=== PATIENT | female | born 1985 | race Native Hawaiian/Other Pacific Islander ===

== ENCOUNTER 2017-04-17 15:34 | Emergency (ER) | payer OTHER ==
--- NOTE | 2017-04-17 17:33 | ED CLINICAL REPORT ---
Clinical Report - Physicians/Mid Levels [facility] [address] [place] [address] 04/17/2017 15:35 Patient: ASHLIE RUBIN Time Seen: 16:17. Arrived- By private vehicle. Historian- patient. HISTORY OF PRESENT ILLNESS Chief Complaint: DYSPNEA. This started yesterday 7 PM; Out of meds this am. and is still present. It was abrupt in onset and has been waxing/waning. The dyspnea is severe. The dyspnea is worsened by exertion (better with). The patient has had a cough, severe wheezing and dyspnea on exertion. No sputum production, fever or sweating episodes. Similar symptoms previously: Several times. REVIEW OF SYSTEMS No eye irritation, sore throat, sinus drainage, nausea or vomiting. No abdominal pain or diarrhea. PAST HISTORY PCP: Dr RAM Illness: Asthma Ops: None. SOCIAL HISTORY Former smoker. ADDITIONAL NOTES The nursing notes have been reviewed. PHYSICAL EXAM Vital Signs: 04/17/2017 17:55 BP: 104/54. HR: 87. RR: 18. O2 saturation: 96%. Pain level now: 0/10. 04/17/2017 15:53 BP: 90/57. HR: 108. RR: 24. O2 saturation: 94%. Temp: 98.7 F. Pain level now: 0/10. Appearance: Alert. Patient in moderate distress. Eyes: Eyes normal inspection. ENT: Pharynx normal. Neck: Normal inspection. CVS: Tachycardia. Heart sounds normal. Respiratory: Respiratory distress. Decreased air movement. Expiratory severe bilateral wheezes diffusely. No stridor or rales. Abdomen: Soft and nontender. Skin: Skin warm. Normal skin color. No rash. Neuro: No alteration in mental status. PROGRESS AND PROCEDURES Course of Care: 15:54 04/18/17. Pt given 3 albuterol HHN treatments and Solumedrol 125 mg IV. She is still wheezing but feels quite comfortable now. Disposition: Discharged. Condition: improved. CLINICAL IMPRESSION Asthma with an acute exacerbation. INSTRUCTIONS Prescription Medications: Albuterol HFA oral inhaler: inhale 4 puffs via spacer every 4 hours as needed for wheezing. Dispense one (1) unit. One refill. Prednisone 20 mg: take 3 orally every day for 5 days. Dispense fifteen (15). No refills. Albuterol 0.083% Inhalation Solution: inhale 1 unit dose (3 mL) via nebulizer every 4 hours as needed for wheezing. Dispense fifty (50) units. No refill. Follow-up: Follow up with your doctor in about five days. Call for the next available appointment. Understanding of the discharge instructions verbalized by patient. (Electronically signed by Tomas Roberts MD 04/18/2017 15:56)
--- NOTE | 2017-04-17 17:33 | ED NURSING NOTES ---
Clinical Report - Nurses [facility] [place] [address] 04/17/2017 15:35 Patient: ASHLIE RUBIN TRIAGE Triage time 15:53. Chief Complaint: SHORTNESS OF BREATH, DIFFICULTY BREATHING, "ASTHMA ATTACK" and WHEEZING and (ran out of meds). Alert. --16:00 Laura Wei R.N. 15:53 04/17/17. BP: 90/57 taken on the left arm. HR: 108. RR: 24. O2 saturation: 94% on room air. Temp: 98.7 F (oral). Pain level now: 0/10. --16:00 Laura Wei R.N. Weight: 100.2 kg stated. Height/Length: 66 inches Per Patient. BMI: 35.7. --15:56 Laura Wei R.N. Medications Albuterol Sulfate Inhalation. Methadone HCl Oral 95 mg, daily. --15:55 Laura Wei R.N. Allergies None. --15:55 Laura Wei R.N. History Arrived by private vehicle. Historian: patient. Accompanied by family. Primary physician ([facility]). This started last night. PAST MEDICAL HX: Immunizations: up-to-date. Denies current . SOCIAL HX: Former smoker, end date 2010. No alcohol use or drug use. FALL RISK ASSESSMENT: Fall risk assessment completed. No fall risk identified. --16:00 Laura Wei R.N. PROBLEMS: Pneumonia. Substance Abuse. Asthma. --15:54 Laura Wei R.N. ADDITIONAL SURGERIES: no known surgeries. Interventions ID band on patient. To room. --16:00 Laura Wei R.N. PHYSICAL ASSESSMENT 16:00 04/17/17. RESPIRATORY: Moderate respiratory distress. The patient can speak a few words at a time. --16:00 Laura Wei R.N. NURSING PROGRESS NOTES 16:00 04/17/17. Oxygen administered by nasal cannula at 2 liters. Reassurance given. Patient identifiers checked. Call light placed in reach. Bed placed in lowest position. Patient ready for evaluation. --16:00 Laura Wei R.N. ( On 2L, sat 95%.). --16:13 Laura Wei R.N. 16:13 04/17/17. ( RT here, giving albuterol neb treatments.). --16:13 Laura Wei R.N. 16:40 04/17/2017 Site #1 started via IV in the right hand with an 20g angiocath (by Laura RN). --16:50 Jacquie Marrufo R.N. 16:50 04/17/2017 SOLU-MEDROL (MethylPREDNISolone Sodium Succ) IVP 125 mg given over 2 minute(s) via site #1. Allergies verified and confirmed 5 rights. IV patency established. IV site checked: no pain, redness, or swelling. IV flushed thoroughly pre- and post-medication administration. IVP given by RN. --16:50 Jacquie Mrarufo R.N. 16:50 sits up in the bed, appears to be falling asleep. --16:51 Jacquie Marrufo R.N. DISPOSITION / DISCHARGE Departure time: 1755. Condition at departure: improved. No learning barriers present. Discharge instructions provided and reviewed with the patient, spouse and family. Reviewed medication(s) information. Prescription(s) given to the patient. Reviewed referral to family practice for followup. Patient verbalized understanding. Family did not verbalize understanding. Written instructions provided. The patient was discharged home and accompanied by family. She left the Emergency Department ambulatory and via private vehicle. --18:00 Laura Wei R.N. 17:55 04/17/17. BP: 104/54. HR: 87. RR: 18. O2 saturation: 96%. Pain level now: 0/10. --18:00 Laura Wei R.N. Locked/Released at 04/17/2017 18:07 by Laura Wei R.N.
--- NOTE | 2017-04-17 17:33 | ED ORDER SUMMARY ---
..... Patient: ASHLIE RUBIN OrderSheet [facility] VisitID: [id number] [place] [address] 32y, F Registration Date/Time: 04/17/2017 ORDER SHEET Weight: 100.2 kg (stated) Allergies: None GENERAL ORDERS: MEDICATION ORDERS: IV FLUIDS: Solu-MEDROL IV 125 mg (NOW) (16:18 04/17/2017 Freda GILBERT) (Ack 16:41 Deirdre R.N.) (16:50 Deirdre R.NTuan) IV Saline Lock (17:11 04/17/2017 Carmel Wilder verbal order read back to Freda GILBERT) (17:12 Carmel R.N.) ORDER SHEET NOTES: [Electronically signed by Laura Wei R.N. (18:07 04/17/2017)] [Electronically signed by Tomas Roberts MD (15:56 04/18/2017)] [Electronically locked/signed by Laura Wei R.N. (18:07 04/17/2017)]
--- NOTE | 2017-04-17 17:33 | ED NURSING NOTES ---
Clinical Report - Nurses [facility] [place] [address] 04/17/2017 15:35 Patient: ASHLIE RUBIN TRIAGE Triage time 15:53. Chief Complaint: SHORTNESS OF BREATH, DIFFICULTY BREATHING, "ASTHMA ATTACK" and WHEEZING and (ran out of meds). Alert. --16:00 Laura Wei R.N. 15:53 04/17/17. BP: 90/57 taken on the left arm. HR: 108. RR: 24. O2 saturation: 94% on room air. Temp: 98.7 F (oral). Pain level now: 0/10. --16:00 Laura Wei R.N. Weight: 100.2 kg stated. Height/Length: 66 inches Per Patient. BMI: 35.7. --15:56 Laura Wei R.N. Medications Albuterol Sulfate Inhalation. Methadone HCl Oral 95 mg, daily. --15:55 Laura Wei R.N. Allergies None. --15:55 Laura Wei R.N. History Arrived by private vehicle. Historian: patient. Accompanied by family. Primary physician ([facility]). This started last night. PAST MEDICAL HX: Immunizations: up-to-date. Denies current . SOCIAL HX: Former smoker, end date 2010. No alcohol use or drug use. FALL RISK ASSESSMENT: Fall risk assessment completed. No fall risk identified. --16:00 Laura Wei R.N. PROBLEMS: Pneumonia. Substance Abuse. Asthma. --15:54 Laura Wei R.N. ADDITIONAL SURGERIES: no known surgeries. Interventions ID band on patient. To room. --16:00 Laura Wei R.N. PHYSICAL ASSESSMENT 16:00 04/17/17. RESPIRATORY: Moderate respiratory distress. The patient can speak a few words at a time. --16:00 Laura Wei R.N. NURSING PROGRESS NOTES 16:00 04/17/17. Oxygen administered by nasal cannula at 2 liters. Reassurance given. Patient identifiers checked. Call light placed in reach. Bed placed in lowest position. Patient ready for evaluation. --16:00 Laura Wei R.N. ( On 2L, sat 95%.). --16:13 Laura Wei R.N. 16:13 04/17/17. ( RT here, giving albuterol neb treatments.). --16:13 Laura Wei R.N. 16:40 04/17/2017 Site #1 started via IV in the right hand with an 20g angiocath (by Laura RN). --16:50 Jacquie Marrufo R.N. 16:50 04/17/2017 SOLU-MEDROL (MethylPREDNISolone Sodium Succ) IVP 125 mg given over 2 minute(s) via site #1. Allergies verified and confirmed 5 rights. IV patency established. IV site checked: no pain, redness, or swelling. IV flushed thoroughly pre- and post-medication administration. IVP given by RN. --16:50 Jacquie Marrufo R.N. 16:50 sits up in the bed, appears to be falling asleep. --16:51 Jacquie Marrufo R.N. DISPOSITION / DISCHARGE Departure time: 1755. Condition at departure: improved. No learning barriers present. Discharge instructions provided and reviewed with the patient, spouse and family. Reviewed medication(s) information. Prescription(s) given to the patient. Reviewed referral to family practice for followup. Patient verbalized understanding. Family did not verbalize understanding. Written instructions provided. The patient was discharged home and accompanied by family. She left the Emergency Department ambulatory and via private vehicle. --18:00 Laura Wei R.N. 17:55 04/17/17. BP: 104/54. HR: 87. RR: 18. O2 saturation: 96%. Pain level now: 0/10. --18:00 Laura Wei R.N. Locked/Released at 04/17/2017 18:07 by Laura Wei R.N.
--- NOTE | 2017-04-17 17:33 | ED CLINICAL REPORT ---
Clinical Report - Physicians/Mid Levels [facility] [address] [place] [address] 04/17/2017 15:35 Patient: ASHLIE RUBIN Time Seen: 16:17. Arrived- By private vehicle. Historian- patient. HISTORY OF PRESENT ILLNESS Chief Complaint: DYSPNEA. This started yesterday 7 PM; Out of meds this am. and is still present. It was abrupt in onset and has been waxing/waning. The dyspnea is severe. The dyspnea is worsened by exertion (better with). The patient has had a cough, severe wheezing and dyspnea on exertion. No sputum production, fever or sweating episodes. Similar symptoms previously: Several times. REVIEW OF SYSTEMS No eye irritation, sore throat, sinus drainage, nausea or vomiting. No abdominal pain or diarrhea. PAST HISTORY PCP: Dr RAM Illness: Asthma Ops: None. SOCIAL HISTORY Former smoker. ADDITIONAL NOTES The nursing notes have been reviewed. PHYSICAL EXAM Vital Signs: 04/17/2017 17:55 BP: 104/54. HR: 87. RR: 18. O2 saturation: 96%. Pain level now: 0/10. 04/17/2017 15:53 BP: 90/57. HR: 108. RR: 24. O2 saturation: 94%. Temp: 98.7 F. Pain level now: 0/10. Appearance: Alert. Patient in moderate distress. Eyes: Eyes normal inspection. ENT: Pharynx normal. Neck: Normal inspection. CVS: Tachycardia. Heart sounds normal. Respiratory: Respiratory distress. Decreased air movement. Expiratory severe bilateral wheezes diffusely. No stridor or rales. Abdomen: Soft and nontender. Skin: Skin warm. Normal skin color. No rash. Neuro: No alteration in mental status. PROGRESS AND PROCEDURES Course of Care: 15:54 04/18/17. Pt given 3 albuterol HHN treatments and Solumedrol 125 mg IV. She is still wheezing but feels quite comfortable now. Disposition: Discharged. Condition: improved. CLINICAL IMPRESSION Asthma with an acute exacerbation. INSTRUCTIONS Prescription Medications: Albuterol HFA oral inhaler: inhale 4 puffs via spacer every 4 hours as needed for wheezing. Dispense one (1) unit. One refill. Prednisone 20 mg: take 3 orally every day for 5 days. Dispense fifteen (15). No refills. Albuterol 0.083% Inhalation Solution: inhale 1 unit dose (3 mL) via nebulizer every 4 hours as needed for wheezing. Dispense fifty (50) units. No refill. Follow-up: Follow up with your doctor in about five days. Call for the next available appointment. Understanding of the discharge instructions verbalized by patient. (Electronically signed by Tomas Roberts MD 04/18/2017 15:56)
--- NOTE | 2017-04-17 17:33 | ED ORDER SUMMARY ---
..... Patient: ASHLIE RUBIN OrderSheet [facility] VisitID: [id number] [place] [address] 32y, F Registration Date/Time: 04/17/2017 ORDER SHEET Weight: 100.2 kg (stated) Allergies: None GENERAL ORDERS: MEDICATION ORDERS: IV FLUIDS: Solu-MEDROL IV 125 mg (NOW) (16:18 04/17/2017 Freda GILBERT) (Ack 16:41 Deirdre R.N.) (16:50 Deirdre R.NTuan) IV Saline Lock (17:11 04/17/2017 Carmel Wilder verbal order read back to Freda GILBERT) (17:12 Carmel R.N.) ORDER SHEET NOTES: [Electronically signed by Laura Wei R.N. (18:07 04/17/2017)] [Electronically signed by Tomas Roberts MD (15:56 04/18/2017)] [Electronically locked/signed by Laura Wei R.N. (18:07 04/17/2017)]
--- NOTE | 2017-04-18 15:56 | ED MAR SUMMARY ---
..... Medication Administration Record [facility] [address] [place] [address] Patient: ASHLIE RUBIN Visit ID: [id number] 32y, F Weight: 100.2 kg Height/Length: 66 in BMI: 35.7 ALLERGIES: None Given 16:50 04/17/2017 Jacquie Marrufo R.N. Medication Administered: SOLU-MEDROL [IVP] (METHYLPREDNISOLONE SODIUM SUCC), Dose: 125 mg IVP over 2 minute(s), Site: #1 right hand. Medication Ordered: Solu-MEDROL IV 125 mg (NOW).
--- NOTE | 2017-04-18 15:56 | ED MED RECONCILIATION SUMMARY ---
Patient: ASHLIE RUBIN Medication Reconciliation Report [facility] VisitID: [id number] [address] [place] [address] 32y, F Registration Date/Time: 04/17/2017 Weight: 100.2 kg Height/Length: 66 in. BMI: 35.7 ALLERGIES: None The patient's Home Medications are listed below: THE FOLLOWING MEDICATIONS NEED TO BE RECONCILED: Albuterol Sulfate Inhalation Methadone HCl Oral 95 mg, daily The source(s) of the original Home Medication information: Not obtained. The following Medications were given to the patient in the Emergency Department: SOLU-MEDROL [IVP] IVP 125 mg, administered: 04/17/2017 4:50:00 PM The following Medications were prescribed to the patient: Albuterol HFA oral inhaler: inhale 4 puffs via spacer every 4 hours as needed for wheezing. Dispense one (1) unit. One refill. -- Tomas Roberts MD Prednisone 20 mg: take 3 orally every day for 5 days. Dispense fifteen (15). No refills. -- Tomas Roberts MD Albuterol 0.083% Inhalation Solution: inhale 1 unit dose (3 mL) via nebulizer every 4 hours as needed for wheezing. Dispense fifty (50) units. No refill. -- Tomas Roberts MD
--- NOTE | 2017-04-18 15:56 | ED MAR SUMMARY ---
..... Medication Administration Record [facility] [address] [place] [address] Patient: ASHLIE RUBIN Visit ID: [id number] 32y, F Weight: 100.2 kg Height/Length: 66 in BMI: 35.7 ALLERGIES: None Given 16:50 04/17/2017 Jacquie Marrufo R.N. Medication Administered: SOLU-MEDROL [IVP] (METHYLPREDNISOLONE SODIUM SUCC), Dose: 125 mg IVP over 2 minute(s), Site: #1 right hand. Medication Ordered: Solu-MEDROL IV 125 mg (NOW).
--- NOTE | 2017-04-18 15:56 | ED MED RECONCILIATION SUMMARY ---
Patient: ASHLIE RUBIN Medication Reconciliation Report [facility] VisitID: [id number] [address] [place] [address] 32y, F Registration Date/Time: 04/17/2017 Weight: 100.2 kg Height/Length: 66 in. BMI: 35.7 ALLERGIES: None The patient's Home Medications are listed below: THE FOLLOWING MEDICATIONS NEED TO BE RECONCILED: Albuterol Sulfate Inhalation Methadone HCl Oral 95 mg, daily The source(s) of the original Home Medication information: Not obtained. The following Medications were given to the patient in the Emergency Department: SOLU-MEDROL [IVP] IVP 125 mg, administered: 04/17/2017 4:50:00 PM The following Medications were prescribed to the patient: Albuterol HFA oral inhaler: inhale 4 puffs via spacer every 4 hours as needed for wheezing. Dispense one (1) unit. One refill. -- Tomas Roberts MD Prednisone 20 mg: take 3 orally every day for 5 days. Dispense fifteen (15). No refills. -- Tomas Roberts MD Albuterol 0.083% Inhalation Solution: inhale 1 unit dose (3 mL) via nebulizer every 4 hours as needed for wheezing. Dispense fifty (50) units. No refill. -- Tomas Roberts MD
--- NOTE | 2017-04-18 15:56 | ED DISCHARGE INSTRUCTIONS ---
Patient: ASHLIE RUBIN General Instructions [facility] VisitID: [id number] [place] [address] 32y, F Registration Date/Time: 04/17/2017 Asthma with an acute exacerbation. INSTRUCTIONS Prescription Medications: Albuterol HFA oral inhaler: inhale 4 puffs via spacer every 4 hours as needed for wheezing. Dispense one (1) unit. One refill. Prednisone 20 mg: take 3 orally every day for 5 days. Dispense fifteen (15). No refills. Albuterol 0.083% Inhalation Solution: inhale 1 unit dose (3 mL) via nebulizer every 4 hours as needed for wheezing. Dispense fifty (50) units. No refill. Follow-up: Follow up with your doctor in about five days. Call for the next available appointment. Understanding of the discharge instructions verbalized by patient. ADDITIONAL INFORMATION Asthma [Adult] Asthma is a disease where the small air passages within the lung go into spasm and restrict the flow of air. Inflammation and swelling of the airways cause further restriction. During an acute asthma attack, these factors cause difficulty breathing, wheezing, cough and chest tightness. An asthma attack can be triggered by many things. Common triggers include the common cold, bronchitis, pneumonia, irritants such as smoke or pullutants in the air, emotional upset and heavy exercise. Inmany adults with asthma, allergies todust, mold, pollen and animal dander can cause an asthma attack. Skipping doses of daily asthma medicine can also bring on an asthma attack. Asthma can be controlled with proper medicines and decreased exposure to known allergens. Home Care: Take prescribed medicine exactly at the times advised. If you have a hand-held inhaler or aerosol breathing medicine, do not use it more than once every four hours, unless told to do so. (If you need this medicine more than every four hours, you may need to return to the Emergency Room.) If prescribed an antibiotic or prednisone, take all of the medicine even if you are feeling better after a few days. Do not smoke. Avoid being exposed to the smoke of others. Some persons with asthma have worsening of their symptoms when they take aspirin and non-steroidal medicines like ibuprofen (Motrin, Advil) and naproxen (Aleve, Naprosyn). Talk to your doctor if you think this may apply to you. Acetaminophen (Tylenol)should be safe to use. Follow Up with your doctor, or as advised by our staff. Always bring all of your current medicines with you for your doctor to see. If you do not already have one, talk to your doctor about developing a personalized "Asthma Action Plan." [NOTE: A pneumococcal vaccine and yearly flu shot (every fall) are recommended. Ask your doctor about this.] Get Prompt Medical Attention if any of the following occur: Increased wheezing or shortness of breath Need to use your inhalers more often than usual without relief Fever of 100.4F (38C) or higher, or as directed by your healthcare provider Coughing up lots of dark-colored or bloody sputum (mucus) Chest pain with each breath You do not start to improve within 24 hours Call 911 If Any Of The Following Occur : Trouble walking or talking because of shortness of breath If you use a peak flow meter andyou are still in the red zone (less than 50 percent) 15 minutes after using inhaler medication Lips or fingernails turning chakraborty or blue Albuterol Sulfate Pressurized inhalation, suspension What is this medicine? ALBUTEROL (al BYOO ter ole) is a bronchodilator. It helps open up the airways in your lungs to make it easier to breathe. This medicine is used to treat and to prevent bronchospasm. How should I use this medicine? This medicine is for inhalation through the mouth. Follow the directions on your prescription label. Take your medicine at regular intervals. Do not use more often than directed. Make sure that you are using your inhaler correctly. Ask you doctor or health care provider if you have any questions. Talk to your mental hygiene consultant regarding the use of this medicine in children. Special care may be needed. What side effects may I notice from receiving this medicine? Side effects that you should report to your doctor or health floor care specialist as soon as possible: allergic reactions like skin rash, itching or hives, swelling of the face, lips, or tongue breathing problems chest pain feeling faint or lightheaded, falls high blood pressure irregular heartbeat fever muscle cramps or weakness pain, tingling, numbness in the hands or feet vomiting Side effects that usually do not require medical attention (report to your doctor or health floor care specialist if they continue or are bothersome): cough difficulty sleeping headache nervousness or trembling stomach upset stuffy or runny nose throat irritation unusual taste What may interact with this medicine? anti-infectives like chloroquine and pentamidine caffeine cisapride diuretics medicines for colds medicines for depression or for emotional or psychotic conditions medicines for weight loss including some herbal products methadone some antibiotics like clarithromycin, erythromycin, levofloxacin, and linezolid some heart medicines steroid hormones like dexamethasone, cortisone, hydrocortisone theophylline thyroid hormones What if I miss a dose? If you miss a dose, use it as soon as you can. If it is almost time for your next dose, use only that dose. Do not use double or extra doses. Where should I keep my medicine? Keep out of the reach of children. Store at room temperature between 15 and 30 degrees C (59 and 86 degrees F). The contents are under pressure and may burst when exposed to heat or flame. Do not freeze. This medicine does not work as well if it is too cold. Throw away any unused medicine after the expiration date. Inhalers need to be thrown away after the labeled number of puffs have been used or by the expiration date; whichever comes first. Ventolin HFA should be thrown away 12 months after removing from foil pouch. Check the instructions that come with your medicine. What should I tell my health care provider before I take this medicine? They need to know if you have any of the following conditions: diabetes heart disease or irregular heartbeat high blood pressure pheochromocytoma seizures thyroid disease an unusual or allergic reaction to albuterol, levalbuterol, sulfites, other medicines, foods, dyes, or preservatives or trying to get breast-feeding What should I watch for while using this medicine? Tell your doctor or health floor care specialist if your symptoms do not improve. Do not use extra albuterol. If your asthma or bronchitis gets worse while you are using this medicine, call your doctor right away. If your mouth gets dry try chewing sugarless gum or sucking hard candy. Drink water as directed. Albuterol Sulfate Nebulizer solution What is this medicine? ALBUTEROL (al BYOO ter ole) is a bronchodilator. It helps to open up the airways in your lungs to make it easier to breathe. This medicine is used to treat and to prevent bronchospasm. How should I use this medicine? This medicine is used in a nebulizer. Nebulizers make a liquid into an aerosol that you breathe in through your mouth or your mouth and nose into your lungs. You will be taught how to use your nebulizer. Follow the directions on your prescription label. Take your medicine at regular intervals. Do not use more often than directed. Talk to your mental hygiene consultant regarding the use of this medicine in children. Special care may be needed. What side effects may I notice from receiving this medicine? Side effects that you should report to your doctor or health floor care specialist as soon as possible: allergic reactions like skin rash, itching or hives, swelling of the face, lips, or tongue breathing problems chest pain feeling faint or lightheaded, falls high blood pressure irregular heartbeat fever muscle cramps or weakness pain, tingling, numbness in the hands or feet vomiting Side effects that usually do not require medical attention (report to your doctor or health floor care specialist if they continue or are bothersome): cough difficulty sleeping headache nervousness, trembling stomach upset stuffy or runny nose throat irritation unusual taste What may interact with this medicine? anti-infectives like chloroquine and pentamidine caffeine cisapride diuretics medicines for colds medicines for depression or emotional or psychotic conditions medicines for weight loss including some herbal products methadone some antibiotics like clarithromycin, erythromycin, levofloxacin, and linezolid some heart medicines steroid hormones like dexamethasone, cortisone, hydrocortisone theophylline thyroid hormones What if I miss a dose? If you miss a dose, use it as soon as you can. If it is almost time for your next dose, use only that dose. Do not use double or extra doses. Where should I keep my medicine? Keep out of the reach of children. Store between 2 and 25 degrees C (36 and 77 degrees F). Do not freeze. Protect from light. Throw away any unused medicine after the expiration date. Most products are kept in the foil package until time of use. Some products can be used up to 1 week after they are removed from the foil pouch. Check the instructions that come with your medicine. What should I tell my health care provider before I take this medicine? They need to know if you have any of the following conditions: diabetes heart disease or irregular heartbeat high blood pressure pheochromocytoma seizures thyroid disease an unusual or allergic reaction to albuterol, levalbuterol, sulfites, other medicines, foods, dyes, or preservatives or trying to get breast-feeding What should I watch for while using this medicine? Tell your doctor or health floor care specialist if your symptoms do not improve. Do not use extra albuterol. Call your doctor right away if your asthma or bronchitis gets worse while you are using this medicine. If your mouth gets dry try chewing sugarless gum or sucking hard candy. Drink water as directed. You have been given the following additional information: Asthma, Acute (Adult) Albuterol Sulfate Pressurized inhalation, suspension Albuterol Sulfate Nebulizer solution (Electronically signed by Tomas Roberts MD 04/18/2017 15:56)
== END 2017-04-17 17:55 | disposition home or self-care (01) ==
LOC: ED SRH 15:34
DX: J45.901 Unspecified asthma with (acute) exacerbation (principal); Z87.891 Personal history of nicotine dependence

== ENCOUNTER 2017-05-28 19:44 | Emergency (ER) | payer OTHER ==
--- NOTE | 2017-05-28 21:16 | DIAGNOSTIC IMAGING REPORT ---
PROCEDURE: CT SINUS/FACIAL BONES W/CONT CLINICAL INDICATION: FACIAL SWELLING TECHNIQUE: 125 ml of Isovue 300 injected intravenously and axial images were obtained through the face with coronal and sagittal reformations. COMPARISON: None. FINDINGS: Left periorbital piercing device. There is mild left periorbital, infraorbital and left paranasal soft tissue swelling but no evidence of an abscess. The globes and orbits are normal. Visualized brain parenchyma is unremarkable. The parotid and submandibular glands are normal. Mildly enlarged digastric and submandibular lymph nodes. There is no fracture. Moderate ethmoid, bilateral maxillary and mild left sphenoid sinus disease. Soft tissue opacification of the nasal passages posteriorly. Mastoids are unremarkable. Normal TMJs. IMPRESSION: 1. Left periorbital piercing device 2. Mild left periorbital, infraorbital and paranasal soft tissue swelling suggestive of cellulitis. No abscess. 3. Mild adenopathy 4. Sinusitis and possible nasal polyps. 5. Results discussed with Linda Krause. All CT scans at this facility use dose modulation, iterative reconstruction, and/or weight-based dosing when appropriate to reduce radiation dose to as low as reasonably achievable.
--- NOTE | 2017-05-28 21:31 | ED CLINICAL REPORT ---
Clinical Report - Physicians/Mid Levels [facility] [address] [place] [address] 05/28/2017 19:48 Patient: ASHLIE RUBIN Time Seen: 1949; upon arrival, initial patient contact, initial documentation, patient care assumed. Arrived- By private vehicle. Historian- patient. HISTORY OF PRESENT ILLNESS Chief Complaint: EYE PAIN and REDNESS. This started today, involves the left eye, is characterized as severe and has been constant and is still present. The patient did not sustain an injury. Eye pain, discomfort and redness. No eye discharge, eye matting, photophobia, blurred vision or double vision. Eyelid swelling. REVIEW OF SYSTEMS All systems otherwise negative, except as recorded above. PAST HISTORY See nurses notes. PROBLEMS: Pneumonia. Substance Abuse. --20:00 Vanessa Maria R.N. Asthma. SOCIAL HISTORY Never smoker. Occasional alcohol use. History of drug use. Is a recovering addict. ADDITIONAL NOTES The nursing notes have been reviewed with agreement regarding the chief complaint, HPI, ROS, PMH and patient medications and allergies. PHYSICAL EXAM Vital Signs: 05/28/2017 19:57 BP: 128/83. HR: 66. RR: 18. O2 saturation: 98%. Temp: 98.4 F. Pain level now: 6/10. Have been reviewed as normal and appear to be correct. Appearance: Alert. No acute distress. HEENT: Ears normal. Nose normal. Pharynx normal. Head appears normal to external inspection. Eyes: Eyelids appear abnormal to inspection. Conjunctivae and sclerae appear normal to inspection. Corneas appear normal to inspection. Pupils equal, round and reactive to light. Accommodation normal. Funduscopic exam normal. Visual shi normal. EOMs intact. Periorbital areas do not appear normal to inspection. Left periorbital area: moderate erythema, tenderness and swelling of the lateral and medial aspect and supraorbital and infraorbital area of the periorbital area. No puncture wound or foreign body. No laceration, abrasion, ecchymosis or deformity. No entrapment of extraocular muscles or gaze palsy. Anterior chambers clear. Anterior chambers of normal depth. Rt Eye: Right eye exam normal. Lt Eye: Left eye exam normal. Severe eyelid edema. Moderate eyelid erythema. No stye present. No foreign body under the eyelid. No injury to the eyelids. Neck: Neck supple. Normal inspection. CVS: Normal heart rate and rhythm. Heart sounds normal. Respiratory: No respiratory distress. Breath sounds abnormal. Inspiratory mild bilateral wheezes diffusely. Skin: No rash. Extremities: Extremities negative. Neuro: Oriented X 3. Mood/affect normal. No motor deficit. No sensory deficit. LABS, X-RAYS, AND EKG Laboratory Tests: Normal. Serum Qualitative: (YUAN: 05/28/2017 20:10) ( [facility] 05/28/2017 20:36) Final results Test Result Flag Units (Reference) , SERUM NEGATIVE CBC w Diff: (YUAN: 05/28/2017 20:10) ( [facility] 05/28/2017 20:28) Final results Test Result Flag Units (Reference) WHITE BLOOD COUNT 9.5 K/uL (4.5-11.5) RED BLOOD COUNT 4.35 M/uL (4.00-5.20) HEMOGLOBIN 10.3 L gm/dL (12.0-16.0) HEMATOCRIT 32.2 L % (36.0-46.0) MEAN CELL VOLUME 74 L fL (80-100) MEAN CORPUSCULAR HGB 24 L pg (26-34) MEAN CORPUSCULAR HGB CONC 32 g/dL (31-37) RED CELL DISTRIBUTION WIDTH 18.7 H % (11.6-14.8) PLATELET COUNT 270 K/uL (150-400) NEUTROPHIL % 69.0 % (50-75) LYMPH % 16.2 L % (25-40) MONO % 8.4 % (3-14) EOSINOPHIL % 6.2 H % (0-4) BASOPHIL % 0.2 % (0-2) CMP: (YUAN: 05/28/2017 20:10) ( [facility] 05/28/2017 20:41) Final results Test Result Flag Units (Reference) GLUCOSE 91 mg/dL (70-110) BUN 8 mg/dL (7-18) CREATININE 0.7 mg/dL (0.6-1.3) Estimated GFR >60 mL/min Estimated GFR- >60 mL/min Note: Persistent reduction over 3 months in eGFR<60 mL/min/1.73 m2 defines CKD. Patients with eGFR values>=60 mL/min/1.73 m2 may also have CKD if evidence ofpersistent proteinuria. Additional information may be foundat www.kidney.org. SODIUM 138 mmol/L (136-145) POTASSIUM 3.8 mmol/L (3.5-5.1) CHLORIDE 104 mmol/L (98-107) CARBON DIOXIDE 27 mmol/L (21-32) CALCIUM 8.2 L mg/dL (8.5-10.1) TOTAL PROTEIN 7.3 g/dL (6.4-8.2) ALBUMIN 2.9 L g/dL (3.3-5.0) BILIRUBIN, TOTAL 0.4 mg/dL (0.0-1.0) ALKALINE PHOSPHATASE 115 U/L (46-116) AST (SGOT) 20 U/L (15-37) ALT (SGPT) 17 U/L (12-78) . Note - Tests: (CT Face IMPRESSION: 1. Left periorbital piercing device 2. Mild left periorbital, infraorbital and paranasal soft tissue swelling suggestive of cellulitis. No abscess. 3. Mild adenopathy 4. Sinusitis and possible nasal polyps. 5. Results discussed with Linda Krause. All CT scans at this facility use dose modulation, iterative reconstruction, and/or weight-based dosing when appropriate to reduce radiation dose to as low as reasonably achievable. Electronically Final signed by:Raúl Broussard MD 05/28/2017 9:16:17 PM). PROGRESS AND PROCEDURES Patient counseled in person regarding the patient's stable condition, test results and diagnosis. 21:17. Differential Diagnosis: Other possible considerations: sinus abscess, periorbital cellulitis, facial abscess, allergic reaction, angioedema. Above considerations are based on history, physical exam, reassessment, laboratory data and other information. Differential diagnosis was discussed with patient. Disposition: Discharged home in good and improved condition (21:31). Condition: good and stable. CLINICAL IMPRESSION Acute maxillary sinusitis INSTRUCTIONS Warnings: GENERAL WARNINGS: Return or contact your physician immediately if your condition worsens or changes unexpectedly, if not improving as expected, or if other problems arise. Specifically return if problem worsens. Prescription Medications: Augmentin 875 mg: take 1 tablet orally every 12 hours for 10 days. No refill. Galloway 5 mg / 325 mg tablets: take 1 to 2 orally every 6 hours as needed for pain. Dispense fifteen (15). No refills. Substitution is permissible. Motrin 800 mg tablets: take 1 tablet orally every 8 hours as needed for pain. Dispense thirty (30). No refills. Substitution is permissible. Follow-up: Follow up with your doctor in about two even if well. Call for an appointment. Summary of care provided to patient. Understanding of the discharge instructions verbalized by patient. (Electronically signed by Linda Kraues A.R.N.P. 05/28/2017 22:04)
--- NOTE | 2017-05-28 21:31 | ED ORDER SUMMARY ---
..... Patient: ASHLIE RUBIN OrderSheet [facility] VisitID: [id number] [place] [address] 32y, F Registration Date/Time: 05/28/2017 ORDER SHEET Weight: 86.1 kg (stated) Allergies: None GENERAL ORDERS: CT Sinus/Facial Bones w Cont Urgent (20:03 05/28/2017 HBivens A.R.N.P.) (Ack 20:05 CHategekimana) (20:57 MCampbell) CBC w Diff Urgent (20:03 05/28/2017 HBivens A.R.N.P.) (Ack 20:04 CHategekimana) (20:37 DDean R.N.) CMP Urgent (20:03 05/28/2017 HBivens A.R.N.P.) (Ack 20:05 CHategekimana) (20:37 DDean R.N.) Serum Qualitative Urgent (20:03 05/28/2017 HBivens A.R.N.P.) (Ack 20:05 CHategekimana) (20:37 DDean R.N.) MEDICATION ORDERS: Albuterol Neb w Atrovent 1 unit dose (NOW) (20:40 05/28/2017 HBivens A.R.N.P.) (21:12 ASingh) Augmentin PO 875 mg (NOW) (21:34 05/28/2017 DDean R.N. per protocol) (21:36 DDean R.N.) Motrin PO 800 mg (NOW) (21:35 05/28/2017 DDean R.N. per protocol) (21:36 DDean R.N.) IV FLUIDS: IV NS : initial bolus 1000 mL (1000 mL/hr), then none - (NOW) (20:03 05/28/2017 HBivens A.R.N.P.) (Ack 20:05 DDean R.N.) (20:38 DDean R.N.) IV Saline Lock (20:03 05/28/2017 HBivens A.R.N.P.) (Ack 20:05 DDean R.N.) (20:37 DDean R.N.) Toradol IV 30 mg (NOW) (20:06 05/28/2017 TUNDEivenronel A.R.N.P.) (20:38 DDean R.N.) ORDER SHEET NOTES: [Electronically signed by Vanessa Maria R.N. (21:50 05/28/2017)] [Electronically signed by Linda KrauseR.N.PTuan (22:04 05/28/2017)] [Electronically locked/signed by Vanessa Maria R.N. (21:50 05/28/2017)]
--- NOTE | 2017-05-28 21:31 | ED NURSING NOTES ---
Clinical Report - Nurses [facility] [address] [place] [address] 05/28/2017 19:48 Patient: ASHLIE RUBIN TRIAGE Triage time 1952. Acuity: LEVEL 4. Chief Complaint: POSSIBLE ALLERGIC REACTION and SWELLING . facial swelling on left side of face, especially soft tisue around eye. tender to touch. --20:04 Vanessa Maria R.N. 19:57 05/28/17. BP: 128/83. HR: 66. RR: 18. O2 saturation: 98%. Temp: 98.4 F. Pain level now: 04/26. --20:04 Vanessa Maria R.N. Weight: 86.1 kg stated. Height/Length: 66 inches Per Patient. BMI: 30.7. --19:59 Vanessa Maria R.N. Medications Albuterol Sulfate Inhalation. Methadone HCl Oral 95 mg, daily. --20:01 Vanessa Maria R.N. motirn 600mg last night for tooth ache . --20:02 Vanessa Maria R.N. Allergies None. --20:01 Vanessa Maria R.N. History Arrived by private vehicle. Historian: patient. Accompanied by family. Primary physician ([facility]). Onset. (10am). She has had swelling. ( pt does c/o left upper tooth ache since last night). No itching or difficulty breathing. PAST MEDICAL HX: Last normal menstrual period- 10 days ago. SURGERY HX: No history of previous surgery. SOCIAL HX: Never smoker. Occasional alcohol use. History of drug use. Is a recovering addict. (clean for 3 years). --20:04 Vanessa Maria R.N. PROBLEMS: Pneumonia. Substance Abuse. --20:00 Vanessa Maria R.N. The following entry was modified by Vanessa Maria R.N., 20:00 <<STRICKEN ENTRY-- Asthma. --22:47 Vanessa Maria R.N. --END STRIKE>>. ADDITIONAL SURGERIES: no known surgeries. Interventions ID band on patient. To treatment room. --20:04 Vanessa Maria R.N. PHYSICAL ASSESSMENT 19:55. GENERAL / NEURO / PSYCH: Alert. Appears in pain. Oriented X 4. HEENT: Facial swelling present. RESPIRATORY: Respirations not labored. Wheezing present. CVS: Capillary refill less than 2 seconds. SKIN: Skin is warm and dry. Swelling present- joshua orbital. --20:05 Vanessa Maria R.N. NURSING PROGRESS NOTES 19:55. Patient gowned. Head of bed elevated. Reassurance given. Patient identifiers checked. Call light placed in reach. Side rails up. Bed placed in lowest position. Patient ready for evaluation- chart flagged. --20:05 Vanessa Maria R.N. 20:10 05/28/2017 Site #1 started via IV in the right antecubital space with an 20g angiocath, with aseptic technique and good blood return; one attempt. Blood drawn: rainbow set. Labeled in the presence of the patient and sent to the lab. Saline lock flushed with 10 mL saline. --20:37 Vanessa Maria R.N. 20:10 05/28/2017 Started bag #1 1000 mL IV Fluids IV NS (Saline); at 1000 mL/hr over 1 hour(s) via site #1 via IV pump. IV patency established. IV site checked: no pain, redness, or swelling. IV flushed thoroughly pre- and post-medication administration. --20:38 Vanessa Maria R.N. 20:12 05/28/2017 Toradol IVP 30 mg given over 1 minute(s) via site #1. IV patency established. IV site checked: no pain, redness, or swelling. IV flushed thoroughly pre- and post-medication administration. IVP given by RN. --20:38 Vanessa Maria R.N. 20:10 IV start and labs drawn. pt given ice chips per EDNP. --20:39 Vanessa Maria R.N. 20:50. Patient transported to [place] by stretcher with tech. --21:32 Vanessa Maria R.N. Patient returned from CT by stretcher. (2100). Not transported back to ED with tech. --21:33 Vanessa Maria R.N. 21:07 RT here to do albuterol tx. --21:33 Vanessa Maria R.N. 21:15 pt given po fluids. --21:34 Vanessa Maria R.N. 21:36 05/28/2017 Augmentin (Amoxicillin-Pot Clavulanate) PO Tablets 875 mg given. Allergies verified and confirmed 5 rights. --21:36 Vanessa Maria R.N. 21:36 05/28/2017 Motrin PO Tablets 800 mg given. Allergies verified and confirmed 5 rights. --21:36 Vanessa Maria R.N. 21:36 05/28/2017 Site #1 removed upon discharge. Bandaid applied. --21:36 Vanessa Maria R.N. 21:36 05/28/2017 IV Saline Lock Drip IV Discontinued: bag #1 infused upon discharge. Total amount infused: 1000 mL. IV patency established. IV site checked: no pain, redness, or swelling. IV flushed thoroughly. --21:36 Vanessa Maria R.N. 21:40 05/28/2017 IV Fluids IV NS Discontinued: bag #1 STOPPED upon discharge. Total amount infused: 800 mL. IV patency established. IV site checked: no pain, redness, or swelling. IV flushed thoroughly. --21:50 Vanessa Maria R.N. DISPOSITION / DISCHARGE 21:45. Condition at departure: unchanged and stable. No learning barriers present. Discharge instructions provided and reviewed with the patient. Reviewed medication(s) (amoxicillin, motrin, vicodin). Patient verbalized understanding. Written instructions provided in Albanian. The patient was discharged home and accompanied by child. She left the Emergency Department ambulatory and via private vehicle. Patient driving. --21:49 Vanessa Maria R.N. 21:45 05/28/17. BP: 114/71. HR: 78. RR: 18. O2 saturation: 98%. Temp: deferred. Pain level now: 03/26. --21:49 Vanessa Maria R.N. Locked/Released at 05/28/2017 21:50 by Vanessa Maria R.N.
--- NOTE | 2017-05-28 21:31 | ED ORDER SUMMARY ---
..... Patient: ASHLIE RUBIN OrderSheet [facility] VisitID: [id number] [place] [address] 32y, F Registration Date/Time: 05/28/2017 ORDER SHEET Weight: 86.1 kg (stated) Allergies: None GENERAL ORDERS: CT Sinus/Facial Bones w Cont Urgent (20:03 05/28/2017 HBivens A.R.N.P.) (Ack 20:05 CHategekimana) (20:57 MCampbell) CBC w Diff Urgent (20:03 05/28/2017 HBivens A.R.N.P.) (Ack 20:04 CHategekimana) (20:37 DDean R.N.) CMP Urgent (20:03 05/28/2017 HBivens A.R.N.P.) (Ack 20:05 CHategekimana) (20:37 DDean R.N.) Serum Qualitative Urgent (20:03 05/28/2017 HBivens A.R.N.P.) (Ack 20:05 CHategekimana) (20:37 DDean R.N.) MEDICATION ORDERS: Albuterol Neb w Atrovent 1 unit dose (NOW) (20:40 05/28/2017 HBivens A.R.N.P.) (21:12 ASingh) Augmentin PO 875 mg (NOW) (21:34 05/28/2017 DDean R.N. per protocol) (21:36 DDean R.N.) Motrin PO 800 mg (NOW) (21:35 05/28/2017 DDean R.N. per protocol) (21:36 DDean R.N.) IV FLUIDS: IV NS : initial bolus 1000 mL (1000 mL/hr), then none - (NOW) (20:03 05/28/2017 HBivens A.R.N.P.) (Ack 20:05 DDean R.N.) (20:38 DDean R.N.) IV Saline Lock (20:03 05/28/2017 HBivens A.R.N.P.) (Ack 20:05 DDean R.N.) (20:37 DDean R.N.) Toradol IV 30 mg (NOW) (20:06 05/28/2017 TUNDEivenronel A.R.N.P.) (20:38 DDean R.N.) ORDER SHEET NOTES: [Electronically signed by Vanessa Maria R.N. (21:50 05/28/2017)] [Electronically signed by Linda KrauseR.N.PTuan (22:04 05/28/2017)] [Electronically locked/signed by Vanessa Maria R.N. (21:50 05/28/2017)]
--- NOTE | 2017-05-28 21:31 | ED NURSING NOTES ---
Clinical Report - Nurses [facility] [address] [place] [address] 05/28/2017 19:48 Patient: ASHLIE RUBIN TRIAGE Triage time 1952. Acuity: LEVEL 4. Chief Complaint: POSSIBLE ALLERGIC REACTION and SWELLING . facial swelling on left side of face, especially soft tisue around eye. tender to touch. --20:04 Vanessa Maria R.N. 19:57 05/28/17. BP: 128/83. HR: 66. RR: 18. O2 saturation: 98%. Temp: 98.4 F. Pain level now: 04/26. --20:04 Vanessa Maria R.N. Weight: 86.1 kg stated. Height/Length: 66 inches Per Patient. BMI: 30.7. --19:59 Vanessa Maria R.N. Medications Albuterol Sulfate Inhalation. Methadone HCl Oral 95 mg, daily. --20:01 Vanessa Maria R.N. motirn 600mg last night for tooth ache . --20:02 Vanessa Maria R.N. Allergies None. --20:01 Vanessa Maria R.N. History Arrived by private vehicle. Historian: patient. Accompanied by family. Primary physician ([facility]). Onset. (10am). She has had swelling. ( pt does c/o left upper tooth ache since last night). No itching or difficulty breathing. PAST MEDICAL HX: Last normal menstrual period- 10 days ago. SURGERY HX: No history of previous surgery. SOCIAL HX: Never smoker. Occasional alcohol use. History of drug use. Is a recovering addict. (clean for 3 years). --20:04 Vanessa Maria R.N. PROBLEMS: Pneumonia. Substance Abuse. --20:00 Vanessa Maria R.N. The following entry was modified by Vanessa Maria R.N., 20:00 <<STRICKEN ENTRY-- Asthma. --22:47 Vanessa Maria R.N. --END STRIKE>>. ADDITIONAL SURGERIES: no known surgeries. Interventions ID band on patient. To treatment room. --20:04 aVnessa Maria R.N. PHYSICAL ASSESSMENT 19:55. GENERAL / NEURO / PSYCH: Alert. Appears in pain. Oriented X 4. HEENT: Facial swelling present. RESPIRATORY: Respirations not labored. Wheezing present. CVS: Capillary refill less than 2 seconds. SKIN: Skin is warm and dry. Swelling present- joshua orbital. --20:05 Vanessa Maria R.N. NURSING PROGRESS NOTES 19:55. Patient gowned. Head of bed elevated. Reassurance given. Patient identifiers checked. Call light placed in reach. Side rails up. Bed placed in lowest position. Patient ready for evaluation- chart flagged. --20:05 Vanessa Maria R.N. 20:10 05/28/2017 Site #1 started via IV in the right antecubital space with an 20g angiocath, with aseptic technique and good blood return; one attempt. Blood drawn: rainbow set. Labeled in the presence of the patient and sent to the lab. Saline lock flushed with 10 mL saline. --20:37 Vanessa Maria R.N. 20:10 05/28/2017 Started bag #1 1000 mL IV Fluids IV NS (Saline); at 1000 mL/hr over 1 hour(s) via site #1 via IV pump. IV patency established. IV site checked: no pain, redness, or swelling. IV flushed thoroughly pre- and post-medication administration. --20:38 Vanessa Maria R.N. 20:12 05/28/2017 Toradol IVP 30 mg given over 1 minute(s) via site #1. IV patency established. IV site checked: no pain, redness, or swelling. IV flushed thoroughly pre- and post-medication administration. IVP given by RN. --20:38 Vanessa Maria R.N. 20:10 IV start and labs drawn. pt given ice chips per EDNP. --20:39 Vanessa Maria R.N. 20:50. Patient transported to [place] by stretcher with tech. --21:32 Vanessa Maria R.N. Patient returned from CT by stretcher. (2100). Not transported back to ED with tech. --21:33 Vanessa Maria R.N. 21:07 RT here to do albuterol tx. --21:33 Vanessa Maria R.N. 21:15 pt given po fluids. --21:34 Vanessa Maria R.N. 21:36 05/28/2017 Augmentin (Amoxicillin-Pot Clavulanate) PO Tablets 875 mg given. Allergies verified and confirmed 5 rights. --21:36 Vanessa Maria R.N. 21:36 05/28/2017 Motrin PO Tablets 800 mg given. Allergies verified and confirmed 5 rights. --21:36 Vanessa Maria R.N. 21:36 05/28/2017 Site #1 removed upon discharge. Bandaid applied. --21:36 Vanessa Maria R.N. 21:36 05/28/2017 IV Saline Lock Drip IV Discontinued: bag #1 infused upon discharge. Total amount infused: 1000 mL. IV patency established. IV site checked: no pain, redness, or swelling. IV flushed thoroughly. --21:36 Vanessa Maria R.N. 21:40 05/28/2017 IV Fluids IV NS Discontinued: bag #1 STOPPED upon discharge. Total amount infused: 800 mL. IV patency established. IV site checked: no pain, redness, or swelling. IV flushed thoroughly. --21:50 Vanessa Maria R.N. DISPOSITION / DISCHARGE 21:45. Condition at departure: unchanged and stable. No learning barriers present. Discharge instructions provided and reviewed with the patient. Reviewed medication(s) (amoxicillin, motrin, vicodin). Patient verbalized understanding. Written instructions provided in Turkish. The patient was discharged home and accompanied by child. She left the Emergency Department ambulatory and via private vehicle. Patient driving. --21:49 Vanessa Maria R.N. 21:45 05/28/17. BP: 114/71. HR: 78. RR: 18. O2 saturation: 98%. Temp: deferred. Pain level now: 03/26. --21:49 Vanessa Maria R.N. Locked/Released at 05/28/2017 21:50 by Vanessa Maria R.N.
--- NOTE | 2017-05-28 22:04 | ED DISCHARGE INSTRUCTIONS ---
Patient: ASHLIE RUBIN General Instructions [facility] VisitID: [id number] [place] [address] 32y, F Registration Date/Time: 05/28/2017 Acute maxillary sinusitis INSTRUCTIONS Warnings: GENERAL WARNINGS: Return or contact your physician immediately if your condition worsens or changes unexpectedly, if not improving as expected, or if other problems arise. Specifically return if problem worsens. Prescription Medications: Augmentin 875 mg: take 1 tablet orally every 12 hours for 10 days. No refill. [place] 5 mg / 325 mg tablets: take 1 to 2 orally every 6 hours as needed for pain. Dispense fifteen (15). No refills. Substitution is permissible. Motrin 800 mg tablets: take 1 tablet orally every 8 hours as needed for pain. Dispense thirty (30). No refills. Substitution is permissible. Follow-up: Follow up with your doctor in about two even if well. Call for an appointment. Summary of care provided to patient. Understanding of the discharge instructions verbalized by patient. ADDITIONAL INFORMATION Sinusitis [Abx Tx] The sinuses are air-filled spaces within the bones of the face. They connect to the inside of the nose. Sinusitis is an inflammation of the tissue lining the sinus cavity. Sinus inflammation can occur during a cold or hay-fever (allergies to pollens and other particles in the air) and cause symptoms of sinus congestion and fullness. A sinus infection causes fever, headache and facial pain. There is usually green or yellow drainage from the nose or into the back of the throat (post-nasal drip). Antibiotics are prescribed to treat this condition. Home Care: Drink plenty of water, hot tea, and other liquids to stay well hydrated. This thins the mucus and promotes sinus drainage. Apply heat to the painful areas of the face. Use a towel soaked in hot water. Or, insurance billing clerk the shower and direct the hot spray onto your face. This is a good way to inhale warm water vapor and get heat on your face at the same time. (Cover your mouth and nose with your hands so you can still breathe as you do this.) Use a vaporizer with products such as Typo Keyboardsub (contains menthol) at night. Suck on peppermint, menthol or eucalyptus hard candies during the day. An expectorant containing guaifenesin (such as Robitussin), helps to thin the mucus and promote drainage from the sinuses. Hloi-aby-idbtben decongestants may be used unless a similar medicine was prescribed. Nasal sprays work the fastest. Use one that contains phenylephrine (Doug-synephrine, Sinex and others) or oxymetazoline (Afrin). First blow the nose gently to remove mucus, then apply the drops. Do not use these medicines more often than directed on the label or for more than three days or symptoms may worsen. You may also use tablets containing pseudoephedrine (Sudafed). Many sinus remedies combine ingredients, which may increase side effects. Read the labels or ask the pharmacist for help. NOTE: Persons with high blood pressure should not use decongestants. They can raise blood pressure. Antihistamines are useful if allergies are a cause of your sinusitis. The mildest one is chlorpheniramine (available without a prescription). The dose for adults is 8-12mg three times a day. [NOTE: Do not use chlorpheniramine if you have glaucoma or if you are a man with trouble urinating due to an enlarged prostate.] Claritin (loratidine) is an antihistamine that causes less drowsiness and is a good alternative for daytime use. Do not use nasal rinses or irrigation during an acute sinus infection, unless advised by your doctor. Rinsing may spread the infection to other sinuses. You may use acetaminophen (Tylenol) or ibuprofen (Motrin, Advil) to control pain, unless another pain medicine was prescribed. [ NOTE: If you have chronic liver or kidney disease or ever had a stomach ulcer, talk with your doctor before using these medicines.] (Aspirin should never be used in anyone under 18 years of age who is ill with a fever. It may cause severe liver damage.) Finish the full course, even if you are feeling better after a few days. Follow Up with your doctor or this facility in one week or as instructed by our staff if not improving. Get Prompt Medical Attention if any of the following occur: Facial pain or headache becomes more severe Stiff neck Unusual drowsiness or confusion, or not acting like your normal self Swelling of the forehead or eyelids Vision problems including blurred or double vision Fever of 100.4F (38C) or higher, or as directed by your healthcare provider Seizure Amoxicillin Trihydrate, Clavulanate Potassium Oral tablet What is this medicine? AMOXICILLIN; CLAVULANIC ACID (a mox i EHSAN in; SEAN hanson ic id) is a penicillin antibiotic. It is used to treat certain kinds of bacterial infections. It will not work for colds, flu, or other viral infections. How should I use this medicine? Take this medicine by mouth with a full glass of water. Follow the directions on the prescription label. Take at the start of a meal. Do not crush or chew. If the tablet has a score line, you may cut it in half at the score line for easier swallowing. Take your medicine at regular intervals. Do not take your medicine more often than directed. Take all of your medicine as directed even if you think you are better. Do not skip doses or stop your medicine early. Talk to your restorer paper and prints regarding the use of this medicine in children. Special care may be needed. What side effects may I notice from receiving this medicine? Side effects that you should report to your doctor or health hospice spiritual care coordinator as soon as possible: allergic reactions like skin rash, itching or hives, swelling of the face, lips, or tongue breathing problems dark urine fever or chills, sore throat redness, blistering, peeling or loosening of the skin, including inside the mouth seizures trouble passing urine or change in the amount of urine unusual bleeding, bruising unusually weak or tired white patches or sores in the mouth or throat Side effects that usually do not require medical attention (report to your doctor or health hospice spiritual care coordinator if they continue or are bothersome): diarrhea dizziness headache nausea, vomiting stomach upset vaginal or anal irritation What may interact with this medicine? allopurinol anticoagulants control pills methotrexate probenecid What if I miss a dose? If you miss a dose, take it as soon as you can. If it is almost time for your next dose, take only that dose. Do not take double or extra doses. Where should I keep my medicine? Keep out of the reach of children. Store at room temperature below 25 degrees C (77 degrees F). Keep container tightly closed. Throw away any unused medicine after the expiration date. What should I tell my health care provider before I take this medicine? They need to know if you have any of these conditions: bowel disease, like colitis kidney disease liver disease mononucleosis an unusual or allergic reaction to amoxicillin, penicillin, cephalosporin, other antibiotics, clavulanic acid, other medicines, foods, dyes, or preservatives or trying to get breast-feeding What should I watch for while using this medicine? Tell your doctor or health hospice spiritual care coordinator if your symptoms do not improve. Do not treat diarrhea with over the counter products. Contact your doctor if you have diarrhea that lasts more than 2 days or if it is severe and watery. If you have diabetes, you may get a false-positive result for sugar in your urine. Check with your doctor or health hospice spiritual care coordinator. control pills may not work properly while you are taking this medicine. Talk to your doctor about using an extra method of control. Hydrocodone Bitartrate, Acetaminophen Oral tablet What is this medicine? ACETAMINOPHEN; HYDROCODONE (a set a FABIOLA santosh fen; dav droe KOE done) is a pain reliever. It is used to treat mild to moderate pain. How should I use this medicine? Take this medicine by mouth. Swallow it with a full glass of water. Follow the directions on the prescription label. If the medicine upsets your stomach, take the medicine with food or milk. Do not take more than you are told to take. Talk to your restorer paper and prints regarding the use of this medicine in children. This medicine is not approved for use in children. What side effects may I notice from receiving this medicine? Side effects that you should report to your doctor or health hospice spiritual care coordinator as soon as possible: allergic reactions like skin rash, itching or hives, swelling of the face, lips, or tongue breathing problems confusion feeling faint or lightheaded, falls stomach pain yellowing of the eyes or skin Side effects that usually do not require medical attention (report to your doctor or health hospice spiritual care coordinator if they continue or are bothersome): nausea, vomiting stomach upset What may interact with this medicine? alcohol antihistamines isoniazid medicines for depression, anxiety, or psychotic disturbances medicines for sleep muscle relaxants naltrexone narcotic medicines (opiates) for pain phenobarbital ritonavir tramadol What if I miss a dose? If you miss a dose, take it as soon as you can. If it is almost time for your next dose, take only that dose. Do not take double or extra doses. Where should I keep my medicine? Keep out of the reach of children. This medicine can be abused. Keep your medicine in a safe place to protect it from theft. Do not share this medicine with anyone. Selling or giving away this medicine is dangerous and against the law. Store at room temperature between 15 and 30 degrees C (59 and 86 degrees F). Protect from light. Keep container tightly closed. Throw away any unused medicine after the expiration date. Discard unused medicine and used packaging carefully. Pets and children can be harmed if they find used or lost packages. What should I tell my health care provider before I take this medicine? They need to know if you have any of these conditions: brain tumor Crohn's disease, inflammatory bowel disease, or ulcerative colitis drink more than 3 alcohol-containing drinks per day drug abuse or addiction head injury heart or circulation problems kidney disease or problems going to the bathroom liver disease lung disease, asthma, or breathing problems an unusual or allergic reaction to acetaminophen, hydrocodone, other opioid analgesics, other medicines, foods, dyes, or preservatives or trying to get breast-feeding What should I watch for while using this medicine? Tell your doctor or health hospice spiritual care coordinator if your pain does not go away, if it gets worse, or if you have new or a different type of pain. You may develop tolerance to the medicine. Tolerance means that you will need a higher dose of the medicine for pain relief. Tolerance is normal and is expected if you take the medicine for a long time. Do not suddenly stop taking your medicine because you may develop a severe reaction. Your body becomes used to the medicine. This does NOT mean you are addicted. Addiction is a behavior related to getting and using a drug for a non-medical reason. If you have pain, you have a medical reason to take pain medicine. Your doctor will tell you how much medicine to take. If your doctor wants you to stop the medicine, the dose will be slowly lowered over time to avoid any side effects. You may get drowsy or dizzy when you first start taking the medicine or change doses. Do not drive, use machinery, or do anything that may be dangerous until you know how the medicine affects you. Stand or sit up slowly. There are different types of narcotic medicines (opiates) for pain. If you take more than one type at the same time, you may have more side effects. Give your health care provider a list of all medicines you use. Your doctor will tell you how much medicine to take. Do not take more medicine than directed. Call emergency for help if you have problems breathing. The medicine will cause constipation. Try to have a bowel movement at least every 2 to 3 days. If you do not have a bowel movement for 3 days, call your doctor or health hospice spiritual care coordinator. Too much acetaminophen can be very dangerous. Do not take Tylenol (acetaminophen) or medicines that contain acetaminophen with this medicine. Many non-prescription medicines contain acetaminophen. Always read the labels carefully. Ibuprofen Oral tablet What is this medicine? IBUPROFEN (eye BYOO proe fen) is a non-steroidal anti-inflammatory drug (NSAID). It is used for dental pain, fever, headaches or migraines, osteoarthritis, rheumatoid arthritis, or painful monthly periods. It can also relieve minor aches and pains caused by a cold, flu, or sore throat. How should I use this medicine? Take this medicine by mouth with a glass of water. Follow the directions on the prescription label. Take this medicine with food if your stomach gets upset. Try to not lie down for at least 10 minutes after you take the medicine. Take your medicine at regular intervals. Do not take your medicine more often than directed. A special MedGuide will be given to you by the pharmacist with each prescription and refill. Be sure to read this information carefully each time. Talk to your restorer paper and prints regarding the use of this medicine in children. Special care may be needed. What side effects may I notice from receiving this medicine? Side effects that you should report to your doctor or health hospice spiritual care coordinator as soon as possible: allergic reactions like skin rash, itching or hives, swelling of the face, lips, or tongue black or bloody stools, blood in the urine or in vomit breathing problems changes in vision chest pain general ill feeling or flu-like symptoms nausea or vomiting redness, blistering, peeling or loosening of the skin, including inside the mouth slurred speech or weakness on one side of the body stomach pain unexplained weight gain or swelling unusually weak or tired yellowing of eyes or skin Side effects that usually do not require medical attention (report to your doctor or health hospice spiritual care coordinator if they continue or are bothersome): constipation or diarrhea dizziness gas or heartburn stomach upset What may interact with this medicine? Do not take this medicine with any of the following medications: cidofovir ketorolac methotrexate pemetrexed This medicine may also interact with the following medications: alcohol aspirin diuretics lithium other drugs for inflammation like prednisone warfarin What if I miss a dose? If you miss a dose, take it as soon as you can. If it is almost time for your next dose, take only that dose. Do not take double or extra doses. Where should I keep my medicine? Keep out of the reach of children. Store at room temperature between 15 and 30 degrees C (59 and 86 degrees F). Keep container tightly closed. Throw away any unused medicine after the expiration date. What should I tell my health care provider before I take this medicine? They need to know if you have any of these conditions: asthma cigarette smoker drink more than 3 alcohol containing drinks a day heart disease or circulation problems such as heart failure or leg edema (fluid retention) high blood pressure kidney disease liver disease stomach bleeding or ulcers an unusual or allergic reaction to ibuprofen, aspirin, other NSAIDS, other medicines, foods, dyes, or preservatives or trying to get breast-feeding What should I watch for while using this medicine? Tell your doctor or healthcare professional if your symptoms do not start to get better or if they get worse. This medicine does not prevent heart attack or stroke. In fact, this medicine may increase the chance of a heart attack or stroke. The chance may increase with longer use of this medicine and in people who have heart disease. If you take aspirin to prevent heart attack or stroke, talk with your doctor or health hospice spiritual care coordinator. Do not take other medicines that contain aspirin, ibuprofen, or naproxen with this medicine. Side effects such as stomach upset, nausea, or ulcers may be more likely to occur. Many medicines available without a prescription should not be taken with this medicine. This medicine can cause ulcers and bleeding in the stomach and intestines at any time during treatment. Ulcers and bleeding can happen without warning symptoms and can cause . To reduce your risk, do not smoke cigarettes or drink alcohol while you are taking this medicine. You may get drowsy or dizzy. Do not drive, use machinery, or do anything that needs mental alertness until you know how this medicine affects you. Do not stand or sit up quickly, especially if you are an older patient. This reduces the risk of dizzy or fainting spells. This medicine can cause you to bleed more easily. Try to avoid damage to your teeth and gums when you brush or floss your teeth. You have been given the following additional information: Sinusitis, Abx Tx Amoxicillin Trihydrate, Clavulanate Potassium Oral tablet Hydrocodone Bitartrate, Acetaminophen Oral tablet Ibuprofen Oral tablet (Electronically signed by Linda Krause A.R.N.P. 05/28/2017 22:04)
--- NOTE | 2017-05-28 22:04 | ED MED RECONCILIATION SUMMARY ---
Patient: ASHLIE RUBIN Medication Reconciliation Report [facility] VisitID: [id number] [place] [address] 32y, F Registration Date/Time: 05/28/2017 Weight: 86.1 kg Height/Length: 66 in. BMI: 30.7 ALLERGIES: None The patient's Home Medications are listed below: THE FOLLOWING MEDICATIONS NEED TO BE RECONCILED: Albuterol Sulfate Inhalation Methadone HCl Oral 95 mg, daily motirn 600mg last night for tooth ache The source(s) of the original Home Medication information: Not obtained. The following Medications were given to the patient in the Emergency Department: IV NS IV Fluids bolus 0, then 1000 mL/hr, administered: 05/28/2017 8:10:00 PM Toradol [IVP] IVP 30 mg, administered: 05/28/2017 8:12:00 PM ALBUTEROL NEB W ATROVENT Neb [place] 1 unit dose, administered: 05/28/2017 9:07:00 PM Augmentin [PO] PO 875 mg, administered: 05/28/2017 9:36:00 PM Motrin [PO] PO 800 mg, administered: 05/28/2017 9:36:00 PM The following Medications were prescribed to the patient: Augmentin 875 mg: take 1 tablet orally every 12 hours for 10 days. No refill. -- Linda Krause A.R.NTuanP. [place] 5 mg / 325 mg tablets: take 1 to 2 orally every 6 hours as needed for pain. Dispense fifteen (15). No refills. Substitution is permissible. -- Linda Krause A.R.NTuanP. Motrin 800 mg tablets: take 1 tablet orally every 8 hours as needed for pain. Dispense thirty (30). No refills. Substitution is permissible. -- Linda Krause A.R.N.P.
--- NOTE | 2017-05-28 22:04 | ED MAR SUMMARY ---
..... Medication Administration Record [facility] [address] [place] [address] Patient: ASHLIE RUBIN Visit ID: [id number] 32y, F Weight: 86.1 kg Height/Length: 66 in BMI: 30.7 ALLERGIES: None Start 20:10 05/28/2017 Vanessa Maria R.N., Stop 21:40 05/28/2017 Vanessa Maria R.N. Medication Administered: IV NS (SALINE), Dose: IV Fluids over 1 hour(s), Rate: 1000 mL/hr, Dispensed: 1000 mL bag, Site: #1 right AC. Medication Ordered: IV NS : initial bolus 1000 mL (1000 mL/hr), then none - (NOW). Given 20:05/28/2017 Vanessa Maria R.N. Medication Administered: TORADOL [IVP], Dose: 30 mg IVP over 1 minute(s), Site: #1 right AC. Medication Ordered: Toradol IV 30 mg (NOW). Given 21:05/28/2017 Krish Baer, Medication Administered: ALBUTEROL NEB W ATROVENT, Dose: 1 unit dose Nebulizer Neb [place]. Medication Ordered: Albuterol Neb w Atrovent 1 unit dose (NOW). Given :05/28/2017 Vanessa Maria R.N. Medication Administered: AUGMENTIN [PO] (AMOXICILLIN-POT CLAVULANATE), Dose: 875 mg Tablets PO. Medication Ordered: Augmentin PO 875 mg (NOW). Given :05/28/2017 Vanessa Maria R.N. Medication Administered: MOTRIN [PO], Dose: 800 mg Tablets PO. Medication Ordered: Motrin PO 800 mg (NOW).
--- NOTE | 2017-05-28 22:04 | ED MED RECONCILIATION SUMMARY ---
Patient: ASHLIE RUBIN Medication Reconciliation Report [facility] VisitID: [id number] [place] [address] 32y, F Registration Date/Time: 05/28/2017 Weight: 86.1 kg Height/Length: 66 in. BMI: 30.7 ALLERGIES: None The patient's Home Medications are listed below: THE FOLLOWING MEDICATIONS NEED TO BE RECONCILED: Albuterol Sulfate Inhalation Methadone HCl Oral 95 mg, daily motirn 600mg last night for tooth ache The source(s) of the original Home Medication information: Not obtained. The following Medications were given to the patient in the Emergency Department: IV NS IV Fluids bolus 0, then 1000 mL/hr, administered: 05/28/2017 8:10:00 PM Toradol [IVP] IVP 30 mg, administered: 05/28/2017 8:12:00 PM ALBUTEROL NEB W ATROVENT Neb [place] 1 unit dose, administered: 05/28/2017 9:07:00 PM Augmentin [PO] PO 875 mg, administered: 05/28/2017 9:36:00 PM Motrin [PO] PO 800 mg, administered: 05/28/2017 9:36:00 PM The following Medications were prescribed to the patient: Augmentin 875 mg: take 1 tablet orally every 12 hours for 10 days. No refill. -- Linda Krause A.R.NTuanP. [place] 5 mg / 325 mg tablets: take 1 to 2 orally every 6 hours as needed for pain. Dispense fifteen (15). No refills. Substitution is permissible. -- Linda Krause A.R.NTuanP. Motrin 800 mg tablets: take 1 tablet orally every 8 hours as needed for pain. Dispense thirty (30). No refills. Substitution is permissible. -- Linda Krause A.R.N.P.
--- NOTE | 2017-05-28 22:04 | ED MAR SUMMARY ---
..... Medication Administration Record [facility] [address] [address] Patient: ASHLIE RUBIN Visit ID: [id number] 32y, F Weight: 86.1 kg Height/Length: 66 in BMI: 30.7 ALLERGIES: None Start 20:10 05/28/2017 Vanessa Maria R.N., Stop 21:40 05/28/2017 Vanessa Maria R.N. Medication Administered: IV NS (SALINE), Dose: IV Fluids over 1 hour(s), Rate: 1000 mL/hr, Dispensed: 1000 mL bag, Site: #1 right AC. Medication Ordered: IV NS : initial bolus 1000 mL (1000 mL/hr), then none - (NOW). Given 20:05/28/2017 Vanessa Maria R.N. Medication Administered: TORADOL [IVP], Dose: 30 mg IVP over 1 minute(s), Site: #1 right AC. Medication Ordered: Toradol IV 30 mg (NOW). Given 21:05/28/2017 Krish Baer, Medication Administered: ALBUTEROL NEB W ATROVENT, Dose: 1 unit dose Nebulizer Neb [place]. Medication Ordered: Albuterol Neb w Atrovent 1 unit dose (NOW). Given :05/28/2017 Vanessa Maria R.N. Medication Administered: AUGMENTIN [PO] (AMOXICILLIN-POT CLAVULANATE), Dose: 875 mg Tablets PO. Medication Ordered: Augmentin PO 875 mg (NOW). Given :05/28/2017 Vanessa Maria R.N. Medication Administered: MOTRIN [PO], Dose: 800 mg Tablets PO. Medication Ordered: Motrin PO 800 mg (NOW).
== END 2017-05-28 21:45 | disposition home or self-care (01) ==
LOC: ED SRH 19:44
DX: J01.00 Acute maxillary sinusitis, unspecified (principal); Z79.899 Other long term (current) drug therapy
CPT/HCPCS: 90100; 95059; 98428